=== PATIENT | female | born 2000 ===

== ENCOUNTER 2022-08-05 17:15 | Emergency (ER) | payer SELFPAY ==
[~2022-08-05] VITALS: Ht 152.4 cm; Wt 56.8 kg
[2022-08-05 18:23] LABS: BASO % 0.2 % (0.0-2.0); EOS # 0.1 K/mm3 (0.0-0.7); EOS % 0.7 % (0.0-4.0); GRAN # 9.3 K/mm3 (1.4-6.5); GRAN % 77.2 % (42.2-75.2); HEMATOCRIT 45.3 % (37.0-47.0); HEMOGLOBIN 15.3 g/dl (12.5-16.0); LYMPH # 2.1 K/mm3 (1.2-3.4); LYMPH % 17.2 % (20.0-51.0); MEAN CELL VOLUME 90 fl (80.0-100.0); MEAN CORPUSCULAR HEMOGLOBIN 30 pg (27-31); MEAN CORPUSCULAR HGB CONC 34 g/dl (33.0-37.0); MEAN PLATELET VOLUME 9.2 fl (7.4-10.4); MONO # 0.5 K/mm3 (0.1-0.6); MONO % 4.4 % (1.7-9.3); PLATELET COUNT 320 K/mm3 (130-400); RED BLOOD COUNT 5.03 M/mm3 (4.10-5.30); REDCELL DISTRIBUTION WIDTH-CV 12.3 % (11.5-14.5)
[2022-08-05 18:47] LABS: ALANINE AMINOTRANSFERASE 16 U/L (0-55); ALBUMIN 4.1 gm/dL (3.5-5.0); ALKALINE PHOSPHATASE 84 U/L (40-150); ANION GAP 13 mmol/L (7-16); AST,SGOT 15 U/L (5-34); BILIRUBIN,TOTAL 0.3 mg/dL (0.2-1.2); BLOOD UREA NITROGEN 19 mg/dL (7-19); CALCIUM 9.5 mg/dL (8.4-10.2); CARBON DIOXIDE 18 mmol/L (22-29); CHLORIDE 109 mmol/L (98-107); CREATININE, serum 0.97 mg/dL (0.57-1.11); GLUCOSE 96 mg/dL (70-99); POTASSIUM 4.2 mmol/L (3.5-4.5); SODIUM 140 mmol/L (136-145); TOTAL PROTEIN 8.1 gm/dL (6.2-8.1)
[2022-08-05 18:57] LABS: C-REACTIVE PROTEIN 0.48 mg/dL (0.00-0.50)
[2022-08-05 19:04] LABS: HCG,QUANTITATIVE < 1 mIU/mL
[2022-08-05 21:11] VITALS: BP 118/65; PULSE 78; TEMP 98.7
== END 2022-08-05 21:13 | disposition home or self-care (01) ==
LOC: COL.ER 17:15
PROVIDERS: Emergency Medicine; Nurse Practitioner
DX: R10.84 Generalized abdominal pain (principal); R11.2 Nausea with vomiting, unspecified; Z32.02 Encounter for pregnancy test, result negative
CPT/HCPCS: J2550; J7030

== ENCOUNTER 2024-08-04 14:44 | Emergency (ER) | payer SELFPAY ==
[~2024-08-04] VITALS: Ht 157 cm; Wt 51.8 kg
[2024-08-04 14:52] VITALS: TEMP 97.7
[2024-08-04 15:00] VITALS: O2SAT 100
[2024-08-04] MEDS ORDERED: Ibuprofen 400 MG TAB PO ONE (16:00)
[2024-08-04 16:25] LABS: BASO % 0.2 % (0.0-2.0); EOS # 0.2 K/mm3 (0.0-0.7); EOS % 1.7 % (0.0-4.0); GRAN # 6.6 K/mm3 (1.4-6.5); GRAN % 64.4 % (42.2-75.2); HEMATOCRIT 41.7 % (37.0-47.0); HEMOGLOBIN 14.4 g/dl (12.5-16.0); LYMPH # 2.9 K/mm3 (1.2-3.4); LYMPH % 28.1 % (20.0-51.0); MEAN CELL VOLUME 89 fl (80.0-100.0); MEAN CORPUSCULAR HEMOGLOBIN 31 pg (27-31); MEAN CORPUSCULAR HGB CONC 35 g/dl (33.0-37.0); MEAN PLATELET VOLUME 8.6 fl (7.4-10.4); MONO # 0.6 K/mm3 (0.1-0.6); MONO % 5.3 % (1.7-9.3); PLATELET COUNT 313 K/mm3 (130-400); RED BLOOD COUNT 4.68 M/mm3 (4.10-5.30); REDCELL DISTRIBUTION WIDTH-CV 12.1 % (11.5-14.5)
[2024-08-04 16:55] LABS: ALANINE AMINOTRANSFERASE 16 U/L (0-55); ALBUMIN 3.9 g/dL (3.5-5.0); ALKALINE PHOSPHATASE 62 U/L (40-150); ANION GAP 12 mmol/L (7-16); AST,SGOT 12 U/L (5-34); BILIRUBIN,TOTAL 0.4 mg/dL (0.2-1.2); BLOOD UREA NITROGEN 12 mg/dL (7-19); CALCIUM 9.6 mg/dL (8.4-10.2); CHLORIDE 107 mEq/L (98-107); CREATININE, serum 0.78 mg/dL (0.57-1.11); GLUCOSE 81 mg/dL (70-99); POTASSIUM 3.8 mEq/L (3.5-4.5); SODIUM 139 mEq/L (136-145); TOTAL PROTEIN 7.8 g/dl (6.2-8.1)
[2024-08-04 17:04] LABS: TROPONIN-I < 0.010 ng/mL (0.00-0.033)
[2024-08-04 17:15] VITALS: BP 113/74; PULSE 78
== END 2024-08-04 17:15 | disposition home or self-care (01) ==
LOC: COL.ER 14:44
PROVIDERS: Nurse Practitioner
DX: R07.89 Other chest pain (principal)

== ENCOUNTER 2024-09-06 16:28 | Emergency (ER) | payer SELFPAY ==
[~2024-09-06] VITALS: Ht 157.5 cm; Wt 64.5 kg
[2024-09-06 16:43] VITALS: BP 120/777; TEMP 97.8
[2024-09-06] MEDS ORDERED: Ketorolac 30 MG/ML VIAL IV ONE (19:15)
[2024-09-06] MEDS ORDERED: fentaNYL 50 MCG/ML 2 ML VIAL IV ONE (19:15)
[2024-09-06] MEDS ORDERED: NS 1,000 ML IV ONE (19:15)
[2024-09-06] MEDS ORDERED: Ondansetron 4 MG/2 ML VIAL IV ONE (19:15)
[2024-09-06 19:39] LABS: COLLECTION METHOD CLEAN CATCH
[2024-09-06 19:44] LABS: BASO % 0.3 % (0.0-2.0); EOS % 0.3 % (0.0-4.0); GRAN # 13.3 K/mm3 (1.4-6.5); GRAN % 86.5 % (42.2-75.2); HEMATOCRIT 41.1 % (37.0-47.0); HEMOGLOBIN 14.1 g/dl (12.5-16.0); LYMPH # 1.2 K/mm3 (1.2-3.4); LYMPH % 7.9 % (20.0-51.0); MEAN CELL VOLUME 91 fl (80.0-100.0); MEAN CORPUSCULAR HEMOGLOBIN 31 pg (27-31); MEAN CORPUSCULAR HGB CONC 34 g/dl (33.0-37.0); MEAN PLATELET VOLUME 9.1 fl (7.4-10.4); MONO # 0.7 K/mm3 (0.1-0.6); MONO % 4.5 % (1.7-9.3); PLATELET COUNT 335 K/mm3 (130-400); RED BLOOD COUNT 4.54 M/mm3 (4.10-5.30); REDCELL DISTRIBUTION WIDTH-CV 12.2 % (11.5-14.5)
[2024-09-06 19:51] LABS: URINE APPEARANCE CLOUDY (CLEAR/HAZY); URINE BLOOD 3+ (NEGATIVE); URINE COLOR YELLOW (YELLOW); URINE GLUCOSE NEGATIVE (NEGATIVE); URINE KETONE TRACE (NEGATIVE); URINE NITRATE NEGATIVE (NEGATIVE); URINE PROTEIN(semi-quant) 2+ (NEGATIVE)
[2024-09-06 20:00] LABS: ALBUMIN 4.3 g/dL (3.5-5.0); BILIRUBIN,TOTAL 0.5 mg/dL (0.2-1.2); C-REACTIVE PROTEIN 0.38 mg/dL (0.00-0.50); CALCIUM 10.3 mg/dL (8.4-10.2); CREATININE, serum 0.89 mg/dL (0.57-1.11); POTASSIUM 3.3 mEq/L (3.5-4.5); TOTAL PROTEIN 8.2 g/dl (6.2-8.1)
[2024-09-06 20:08] LABS: URINE CALCIUM OXALATE CRYSTAL PRESENT (NOT PRESENT); URINE RBC >50 /hpf (0-2)
[2024-09-06 20:09] LABS: URINE BACTERIA MANY /hpf (NONE SEEN)
[2024-09-06] MEDS ORDERED: Iohexol 300 - 100 ML VIAL IV ONE (20:12)
[2024-09-06] MEDS ORDERED: NS 100 ML IV ONE (20:13)
[2024-09-06] MEDS ORDERED: CEPHALEXIN500 M1 PO (21:29)
[2024-09-06] MEDS ORDERED: NORCO 325 MG-51 TAB PO (21:29)
[2024-09-06] MEDS ORDERED: FLOMAX 0.40.4 MG/CAP PO (21:29)
[2024-09-06] MEDS ORDERED: Home HYDROcodone/Acetaminophen 5/325 MG #4 TABS/PACK PO ONE (21:30)
[2024-09-06 22:17] VITALS: PULSE 80
== END 2024-09-06 22:18 | disposition home or self-care (01) ==
LOC: COL.ER 16:28
PROVIDERS: Emergency Medicine
DX: N20.1 Calculus of ureter (principal); E87.6 Hypokalemia
CPT/HCPCS: J1885; J2405; J3010; J7030; Q9967